=== PATIENT | male | born 1940 | race Two or more races ===

== ENCOUNTER → 2020-09-09 | Emergency (ER) | payer OTHER ==
[~2020-09-09] VITALS: Ht 165.1 cm; Wt 98.0 kg
[~2020-09-09] MED LIST: DIOVAN320 MG PO; GINGER ROOT1 GM MC; LIPITOR40 M1 PO; MOTION RELIEF25 MG PO; NORVASC10 MG PO; TOPROL XL50 M1 PO
== END | disposition home or self-care (01) ==
LOC: ER 09:41 → CPU-OBS 10:06 → ER 10:06
DX: R07.89 Other chest pain (principal); R42 Dizziness and giddiness